=== PATIENT | male | born 1955 | race Caucasian/White ===

== ENCOUNTER 2018-02-07 23:25 | Inpatient (IN) | payer BC ==
[2018-02-07] MEDS ORDERED: methylPREDNISolone SOD SUCCI 125 MG/2 ML VIAL IV STA (23:27)
[2018-02-07] MEDS ORDERED: IPRATROPIUM-ALBUTEROL 3 ML NEB INHALATION STA (23:27)
[2018-02-07] MEDS ORDERED: SODIUM CHLORIDE 0.9% 1,000 ML IV STA ×2 (23:27)
--- NOTE | 2018-02-07 23:29 | ED ---
Asthma HPI - General Stated Complaint: MARIE - History of Present Illness Initial Comments: Anderson is a 62-year-old male who presents to the ED via EMS for evaluation of shortness of breath. Upon initial evaluation the patient is in acute respiratory distress, 2 word dyspnea, on CPAP from EMS. Patient is able to answer yes no questions. Patient reports he's had progressively worsening shortness of breath and wheezing for approximately 2 weeks. It worsened today which prompted his to call 911. Patient denies chest pain, palpitations or exertional symptoms. He reports initially his symptoms would improve with using his rescue inhaler but today they did not. He denies any fever or productive cough. - Related Data Home Medications Medication Instructions Recorded Confirmed Albuterol Sulfate [Proair Hfa] 1 - 2 puff INHALATION Q6HR PRN 02/07/18 02/07/18 Beclomethasone Dipropionate [Qvar 1 puff INHALATION RT-BID 02/07/18 02/07/18 80 mcg] Fluticasone Propionate [Flovent 1 puff INHALATION RT-DAILY PRN 02/07/18 02/07/18 Diskus] Lisinopril-Hctz 20-12.5 mg 1 tab PO DAILY 02/07/18 02/07/18 [Zestoretic 20-12.5] Pantoprazole [Protonix] 40 mg PO DAILY 02/07/18 02/07/18 Allergies Allergy/AdvReac Type Severity Reaction Status Date / Time No Known Allergies Allergy Verified 02/07/18 23:39 Review of Systems ROS Statement: Those systems with pertinent positive or pertinent negative responses have been documented in the HPI. ROS Other: All systems not noted in ROS Statement are negative. Past Medical History Past Medical History: Asthma, GERD/Reflux, Hypertension Additional Past Medical History / Comment(s): receives alg injections for seasonal,dust,mold,animal dander,trees every 2 weeks. History of Any Multi-Drug Resistant Organisms: None Reported Past Surgical History: Hernia Repair Past Anesthesia/Blood Transfusion Reactions: No Reported Reaction Smoking Status: Never smoker - Past Family History Mother Family Medical History: Cancer Additional Family Medical History / Comment(s): lung mets to brain Father Family Medical History: Hypertension Additional Family Medical History / Comment(s): caden General Exam - General Exam Comments Initial Comments: Physical Exam GENERAL: Patient is in moderate respiratory distress HENT: Normocephalic, Atraumatic. EYES: PERRL, EOMI PULMONARY: Tachypneic, labored respirations, expiratory and expiratory wheezing, retractions CARDIOVASCULAR: Tachycardic, regular Warm and well-perfused extremities ABDOMEN: Soft and nontender with normal bowel sounds. SKIN: Skin is clear with no lesions or rashes and otherwise unremarkable. There is skin tenting and the patient appears dehydrated : Deferred NEUROLOGIC: Patient is alert and oriented x3. Moving all extremities spontaneously MUSCULOSKELETAL: Normal extremities with adequate strength and full range of motion. No lower extremity swelling or edema. No calf tenderness. PSYCHIATRIC: Normal psychiatric evaluation. Limitations: no limitations Course Vital Signs 02/07/18 02/07/18 02/07/18 23:26 23:37 23:46 Temperature 97.6 F Pulse Rate 131 H 122 H Pulse Rate [ Electronics Hardware Design Engineer ] Respiratory 24 22 20 Rate Blood Pressure 178/126 Blood Pressure [Left Arm] O2 Sat by Pulse 100 Oximetry 02/07/18 02/08/18 02/08/18 23:51 00:06 00:54 Temperature Pulse Rate 120 H 116 H 101 H Pulse Rate [ Electronics Hardware Design Engineer ] Respiratory 18 14 13 Rate Blood Pressure 138/96 117/88 Blood Pressure [Left Arm] O2 Sat by Pulse 99 100 Oximetry 02/08/18 02/08/18 01:43 01:45 Temperature 97.8 F Pulse Rate 90 Pulse Rate [ 116 H Electronics Hardware Design Engineer ] Respiratory 26 H 14 Rate Blood Pressure 122/78 Blood Pressure 142/70 [Left Arm] O2 Sat by Pulse 98 99 Oximetry Medical Decision Making - Medical Decision Making Patient was seen and evaluated immediately upon arrival in the emergency department. Patient was noted to be in moderate respiratory distress. Patient was on CPAP with oxygen saturations in the 100s. BiPAP was immediately placed. Patient and received a single DuoNeb treatment in route to the hospital - double DuoNeb therapy and steroids were ordered Labs and imaging were ordered EKG with sinus tachycardia Labs with elevated globin which is likely hemoconcentration secondary to dehydration, troponin and d-dimer negative Patient improving after double DuoNeb and steroids and oxygen saturation remains 100% on BiPAP Patient reports improvement, but has persistent wheezing, IV magnesium was ordered At this time I do feel the patient warrants admission to the hospital. His oxygenation is improving his work of breathing is improving, his tachypnea and is improving as well as his tachycardia. I suspect the patient will require [id number] duo nebs and steroids. Patient is agreeable to plan for admission. Patient is currently on BiPAP I will plan to admit to the stepdown unit. - Lab Data Result diagrams: 02/07/18 23:37 02/07/18 23:37 Lab Results 02/07/18 02/07/18 02/07/18 Range/Units 23:37 23:37 23:37 WBC 9.8 (3.8-10.6) k/uL RBC 5.07 (4.30-5.90) m/uL Hgb 18.0 H (13.0-17.5) gm/dL Hct 52.5 (39.0-53.0) % MCV 103.6 H (80.0-100.0) fL MCH 35.5 H (25.0-35.0) pg MCHC 34.3 (31.0-37.0) g/dL RDW 12.7 (11.5-15.5) % Plt Count 275 (150-450) k/uL Neutrophils % 68 % Lymphocytes % 11 % Monocytes % 5 % Eosinophils % 13 % Basophils % 1 % Neutrophils # 6.7 (1.3-7.7) k/uL Lymphocytes # 1.1 (1.0-4.8) k/uL Monocytes # 0.5 (0-1.0) k/uL Eosinophils # 1.3 H (0-0.7) k/uL Basophils # 0.1 (0-0.2) k/uL Macrocytosis Slight PT (9.0-12.0) sec INR (<1.2) APTT (22.0-30.0) sec D-Dimer (<0.60) mg/L FEU Sodium 141 (137-145) mmol/L Potassium 3.9 (3.5-5.1) mmol/L Chloride 101 (98-107) mmol/L Carbon Dioxide 28 (22-30) mmol/L Anion Gap 12 mmol/L BUN 17 (9-20) mg/dL Creatinine 0.98 (0.66-1.25) mg/dL Est GFR (CKD-EPI)AfAm >90 (>60 ml/min/1.73 sqM) Est GFR (CKD-EPI)NonAf 84 (>60 ml/min/1.73 sqM) Glucose 133 H (74-99) mg/dL Calcium 9.7 (8.4-10.2) mg/dL Magnesium 2.2 (1.6-2.3) mg/dL Total Bilirubin 1.1 (0.2-1.3) mg/dL AST 43 (17-59) U/L ALT 42 (21-72) U/L Alkaline Phosphatase 99 (38-126) U/L Total Creatine Kinase 78 (55-170) U/L CK-MB (CK-2) 1.7 (0.0-2.4) ng/mL CK-MB (CK-2) Rel Index 2.2 Troponin I <0.012 (0.000-0.034) ng/mL NT-Pro-B Natriuret Pep pg/mL Total Protein 8.4 H (6.3-8.2) g/dL Albumin 4.6 (3.5-5.0) g/dL 02/07/18 02/07/18 Range/Units 23:37 23:37 WBC (3.8-10.6) k/uL RBC (4.30-5.90) m/uL Hgb (13.0-17.5) gm/dL Hct (39.0-53.0) % MCV (80.0-100.0) fL MCH (25.0-35.0) pg MCHC (31.0-37.0) g/dL RDW (11.5-15.5) % Plt Count (150-450) k/uL Neutrophils % % Lymphocytes % % Monocytes % % Eosinophils % % Basophils % % Neutrophils # (1.3-7.7) k/uL Lymphocytes # (1.0-4.8) k/uL Monocytes # (0-1.0) k/uL Eosinophils # (0-0.7) k/uL Basophils # (0-0.2) k/uL Macrocytosis PT 10.4 (9.0-12.0) sec INR 1.1 (<1.2) APTT 24.5 (22.0-30.0) sec D-Dimer 0.35 (<0.60) mg/L FEU Sodium (137-145) mmol/L Potassium (3.5-5.1) mmol/L Chloride (98-107) mmol/L Carbon Dioxide (22-30) mmol/L Anion Gap mmol/L BUN (9-20) mg/dL Creatinine (0.66-1.25) mg/dL Est GFR (CKD-EPI)AfAm (>60 ml/min/1.73 sqM) Est GFR (CKD-EPI)NonAf (>60 ml/min/1.73 sqM) Glucose (74-99) mg/dL Calcium (8.4-10.2) mg/dL Magnesium (1.6-2.3) mg/dL Total Bilirubin (0.2-1.3) mg/dL AST (17-59) U/L ALT (21-72) U/L Alkaline Phosphatase (38-126) U/L Total Creatine Kinase (55-170) U/L CK-MB (CK-2) (0.0-2.4) ng/mL CK-MB (CK-2) Rel Index Troponin I (0.000-0.034) ng/mL NT-Pro-B Natriuret Pep 160 pg/mL Total Protein (6.3-8.2) g/dL Albumin (3.5-5.0) g/dL - EKG Data EKG Comments: EKG obtained at 11:29 PM, rate is 131, rhythm is sinus, there is a normal axis, normal intervals, AR 152, QRS 76, QTC is 431. There is some hyperacute T waves in V2 through V4, no specific ST elevations or depressions. No evidence of acute ischemia or infarction. We will repeat EKG. Critical Care Time Critical Care Time: Yes Total Critical Care Time: 30 Disposition Clinical Impression: Asthma with exacerbation Disposition: ADMITTED IP TO THIS HOSP Condition: Serious Is patient prescribed a controlled substance at d/c from ED?: No
--- NOTE | 2018-02-08 00:03 | XR ---
EXAMINATION TYPE: XR chest 1V portable DATE OF EXAM: 02/07/2018 COMPARISON: 02/14/2013 HISTORY: Difficulty breathing TECHNIQUE: Single frontal view of the chest is obtained. FINDINGS: Heart and mediastinum are normal. Lungs are clear. Diaphragm is normal. There are chest le ads. Bony thorax is intact. IMPRESSION: Normal chest. No change.
[2018-02-08 00:07] LABS: Basophils # (A) 0.1 k/uL (0-0.2); Basophils % (A) 1 %; Eosinophils # (A) 1.3 k/uL (0-0.7); Eosinophils % (A) 13 %; HCT 52.5 % (39.0-53.0); Lymphocytes # (A) 1.1 k/uL (1.0-4.8); Lymphocytes % (A) 11 %; MCH 35.5 pg (25.0-35.0); MCHC 34.3 g/dL (31.0-37.0); MCV 103.6 fL (80.0-100.0); Macrocytosis Slight; Mean Platelet Volume 7.2; Monocytes # (A) 0.5 k/uL (0-1.0); Monocytes % (A) 5 %; Neutrophils # (A) 6.7 k/uL (1.3-7.7); Neutrophils % (A) 68 %; Platelet Count 275 k/uL (150-450); RBC 5.07 m/uL (4.30-5.90); RDW 12.7 % (11.5-15.5); WBC 9.8 k/uL (3.8-10.6)
[2018-02-08 00:18] LABS: ALT 42 U/L (21-72); AST 43 U/L (17-59); Albumin 4.6 g/dL (3.5-5.0); Alkaline Phosphatase 99 U/L (38-126); Anion Gap 12 mmol/L; Blood Urea Nitrogen 17 mg/dL (9-20); Calcium 9.7 mg/dL (8.4-10.2); Carbon Dioxide 28 mmol/L (22-30); Chloride 101 mmol/L (98-107); Glucose 133 mg/dL (74-99); Magnesium 2.2 mg/dL (1.6-2.3); Potassium 3.9 mmol/L (3.5-5.1); Sodium 141 mmol/L (137-145); Total Bilirubin 1.1 mg/dL (0.2-1.3); Total Protein 8.4 g/dL (6.3-8.2)
[2018-02-08 00:20] LABS: D-Dimer 0.35 mg/L FEU (<0.60); INR 1.1 (<1.2); Partial Thromboplastin Time 24.5 sec (22.0-30.0); Prothrombin Time 10.4 sec (9.0-12.0)
[2018-02-08 00:33] LABS: Creatine Kinase 78 U/L (55-170)
[2018-02-08 00:45] LABS: Creatine Kinase MB 1.7 ng/mL (0.0-2.4); Troponin I <0.012 ng/mL (0.000-0.034)
[2018-02-08] MEDS ORDERED: MAGNESIUM SULFATE-D5W PMX 1 GM in DEXTROSE/WATER 1 100ML.BAG IVPB ONE (00:59)
[2018-02-08] MEDS ORDERED: IPRATROPIUM-ALBUTEROL 3 ML NEB INHALATION PRN ×2 (01:01→10:49)
[2018-02-08 02:09] VITALS: BMI 25.0
[2018-02-08] MEDS: HEPARIN SODIUM,PORCINE 5,000 UNIT/ML 1 ML VIAL SQ SCH ×2 (08:46→16:39)
[2018-02-08] MEDS ORDERED: predniSONE 20 MG TAB PO SCH (09:00)
--- NOTE | 2018-02-08 11:35 | P.CNPUL ---
History of Present Illness Consult date: 02/08/18 Reason for consult: dyspnea, cough, asthma, hypoxemia, abnormal CXR/CT Chief complaint: Shortness of breath and asthma exacerbation History of present illness: Pulmonary consult dated 02/08/2018 62-year-old male with a history of gastroesophageal reflux disease, hypertension , and chronic bronchial asthma. The patient sees a physician out in [place] for his medical issues. Over the last number of days, the patient states his asthma is acting up. 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 He states he has profound shortness of breath chest tightness wheezing and cough. Coughing up some phlegm which is yellow-green in color. The patient denies any fever or chills. He apparently has been using his rescue inhaler many many times and he actually estimates that he is use his rescue inhaler 42 times. The patient is typically on protonic's lisinopril/ HCTZ Qvar albuterol updrafts and albuterol inhaler for his medical issues. The patient states that the short acting beta agonist really did not help. For that reason, he came into the emergency room to be evaluated. He is feeling a bit better today but certainly has a long way to go yet. Again the patient has never seen a supervisor putty and caluking in the past. This probably useful if he does. He has NO KNOWN DRUG ALLERGIES. He apparently receives ALLERGY injections for seasonal allergens dust mold and animal dander trees, etc., every 2 weeks. Surgically, he has a history of hernia repair. He is a lifelong nonsmoker. Review of Systems A 14 point review of system is positive for shortness of breath chest tightness wheezing cough and yellow brown phlegm production. No fever or chills. Past Medical History Past Medical History: Asthma, GERD/Reflux, Hypertension Additional Past Medical History / Comment(s): receives alg injections for seasonal,dust,mold,animal dander,trees every 2 weeks. History of Any Multi-Drug Resistant Organisms: None Reported Past Surgical History: Hernia Repair Past Anesthesia/Blood Transfusion Reactions: No Reported Reaction Smoking Status: Never smoker - Past Family History Mother Family Medical History: Cancer Additional Family Medical History / Comment(s): lung mets to brain Father Family Medical History: Hypertension Additional Family Medical History / Comment(s): pacermaker Medications and Allergies Home Medications Medication Instructions Recorded Confirmed Type Albuterol Sulfate [Proair Hfa] 1 - 2 puff INHALATION Q6HR PRN 02/07/18 02/07/18 History Beclomethasone Dipropionate [Qvar 1 puff INHALATION RT-BID 02/07/18 02/07/18 History 80 mcg] Fluticasone Propionate [Flovent 1 puff INHALATION RT-DAILY PRN 02/07/18 History Diskus] Lisinopril-Hctz 20-12.5 mg 1 tab PO DAILY 02/07/18 02/07/18 History [Zestoretic 20-12.5] Pantoprazole [Protonix] 40 mg PO DAILY 02/07/18 02/07/18 History Allergies Allergy/AdvReac Type Severity Reaction Status Date / Time No Known Allergies Allergy Verified 02/07/18 23:39 Physical Exam Osteopathic Statement: *. No significant issues noted on an osteopathic structural exam other than those noted in the History and Physical/Consult. Vitals: Vital Signs Temp Pulse Pulse Resp BP BP Pulse Ox 02/08/18 11:16 104 H 02/08/18 11:06 100 02/08/18 08:00 97.2 F L 103 H 16 122/70 97 02/08/18 07:34 110 H 02/08/18 07:24 108 H 02/08/18 04:00 98 F 96 24 97 02/08/18 01:45 97.8 F 90 14 122/78 99 02/08/18 01:43 116 H 26 H 142/70 98 02/08/18 00:54 101 H 13 117/88 100 02/08/18 00:06 116 H 14 138/96 99 02/07/18 23:51 120 H 18 02/07/18 23:46 20 02/07/18 23:37 122 H 22 02/07/18 23:26 97.6 F 131 H 24 178/126 100 Intake and Output 02/07/18 02/08/18 02/08/18 22:59 06:59 14:59 Intake Total 480 118 Balance 480 118 Intake: Oral 480 118 Other: Voiding Method Urinal # Voids 1 Weight 75.5 kg No acute distress, oriented 3. Mildly tachypnea and dyspneic. Some mild audible wheezing noted. HEENT examination is grossly unremarkable. Mucous membranes are moist. No oral lesions. Neck supple. Full range of motion. No adenopathy thyromegaly or neck vein distention. Cardiovascular examination reveals regular rhythm rate. S1-S2 normal. No S3 or S4. No discernible murmur noted. Heart rate is 100. Lungs reveal diminished breath sounds throughout. There is prolongation on forced maneuver. Patient coughs and wheezes on forced maneuver. Breath sounds are equal bilaterally. Adventitious lung sounds are more prominent on forced maneuver.. Abdomen soft bowel sounds are heard. No masses or tenderness. Extremities are intact. No cyanosis clubbing or edema. Skin is without rash or lesion. Neurologic examination is brief but nonfocal. Results - Laboratory Findings CBC and BMP: 02/07/18 23:37 02/07/18 23:37 PT/INR, D-dimer PT 10.4 sec (9.0-12.0) 02/07/18 23:37 INR 1.1 (<1.2) 02/07/18 23:37 D-Dimer 0.35 mg/L FEU (<0.60) 02/07/18 23:37 Abnormal lab findings: Abnormal Labs 02/07/18 02/07/18 23:37 23:37 Hgb 18.0 H MCV 103.6 H MCH 35.5 H Eosinophils # 1.3 H Glucose 133 H Total Protein 8.4 H - Diagnostic Findings Chest x-ray: report reviewed, image reviewed (Chest x-ray, labs and medications are reviewed extensively.) Assessment and Plan Assessment: Assessment Asthma exacerbation likely complicated by purulent tracheobronchitis Lifelong nonsmoker. History of hypertension History of gastroesophageal reflux disease Plan: Plan dated 02/08/2018 The patient's medications are reviewed. He'll need a short acting beta agonist , I short acting muscarinic antagonist, a long-acting beta agonist and inhaled corticosteroid. In addition, the patient will need systemic corticosteroids and oral antibiotics. He probably will need another day or 2 in the hospital. He apparently was on Singulair in the past but stopped it because it caused abdominal pains. He stopped and then resumed it after 2 weeks and it again caused abdominal pains and he has never gone back on it. 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 He get shots every 2 weeks. The patient will need follow-up in our office post discharge. No additional recommendations are made. Prognosis is guarded. Time with Patient: Greater than 30
[2018-02-08 12:04] LABS: Glucose,Whole Blood 168 mg/dL (75-99)
[2018-02-08] MEDS ORDERED: ACETAMINOPHEN TAB 325 MG TAB PO PRN (13:01)
[2018-02-08] MEDS: LEVOFLOXACIN 500 MG TAB PO SCH (13:07)
[2018-02-08] MEDS: methylPREDNISolone SOD SUCCI 125 MG/2 ML VIAL IV SCH ×2 (13:11→16:40)
[2018-02-08] MEDS: IPRATROPIUM-ALBUTEROL 3 ML NEB INHALATION SCH ×4 (15:40→23:33)
[2018-02-08] MEDS: INSULIN ASPART 100 UNIT/ML 1 ML 10 ML VIAL SQ SCH ×2 (16:39→20:23)
[2018-02-08 16:45] LABS: Glucose,Whole Blood 166 mg/dL (75-99)
[2018-02-08] MEDS ORDERED: FLUTICASONE 44 MCG INHALER INHALATION PRN (17:57)
--- NOTE | 2018-02-08 18:53 | P.HPIM ---
History of Present Illness This is a pleasant 62 years old female with past medical history of asthma, GERD , hypertension. Who presents because of acute dyspnea. Typical asthma attack. Patient states he has history of asthma since age 7. And over the last 2 weeks he was getting progressively short of breath despite the was asking him to come to the hospital or see his doctor. Yesterday he got severely short of breath after he came from marked fecal debris. I decided to come to the hospital. His dyspnea is associated with a dry cough. No phlegm. No chest pain. No change in urine or bowel habits. No upper respiratory tract symptoms. no Fever. No sick contacts. Patient states he has 2 ducts for 5 years which he counseled to keep away from contributed to his asthma attack. Patient was started on steroids and breathing treatment and oxygen and antibiotic. And he starts feeling better Review of Systems CONSTITUTIONAL: No fever, no malaise, no fatigue. HEENT: No recent visual problems or hearing problems. Denied any sore throat. CARDIOVASCULAR: No orthopnea, PND, no palpitations, no syncope. PULMONARY: No shortness of breath, no cough, no hemoptysis. GASTROINTESTINAL: No diarrhea, no nausea, no vomiting, no abdominal pain. Normoactive bowel sounds. NEUROLOGICAL: No headaches, no weakness, no numbness. HEMATOLOGICAL: Denies any bleeding or petechiae. GENITOURINARY: Denies any burning micturition, frequency, or urgency. MUSCULOSKELETAL/RHEUMATOLOGICAL: Denies any joint pain, swelling, or any muscle pain. ENDOCRINE: Denies any polyuria or polydipsia. Past Medical History Past Medical History: Asthma, GERD/Reflux, Hypertension Additional Past Medical History / Comment(s): receives alg injections for seasonal,dust,mold,animal dander,trees every 2 weeks. History of Any Multi-Drug Resistant Organisms: None Reported Past Surgical History: Hernia Repair Past Anesthesia/Blood Transfusion Reactions: No Reported Reaction Smoking Status: Never smoker - Past Family History Mother Family Medical History: Cancer Additional Family Medical History / Comment(s): lung mets to brain Father Family Medical History: Hypertension Additional Family Medical History / Comment(s): MerchMermaker Medications and Allergies Home Medications Medication Instructions Recorded Confirmed Type Albuterol Sulfate [Proair Hfa] 1 - 2 puff INHALATION Q6HR PRN 02/07/18 02/07/18 History Beclomethasone Dipropionate [Qvar 1 puff INHALATION RT-BID 02/07/18 02/07/18 History 80 mcg] Fluticasone Propionate [Flovent 1 puff INHALATION RT-DAILY PRN 02/07/18 History Diskus] Lisinopril-Hctz 20-12.5 mg 1 tab PO DAILY 02/07/18 02/07/18 History [Zestoretic 20-12.5] Pantoprazole [Protonix] 40 mg PO DAILY 02/07/18 02/07/18 History Allergies Allergy/AdvReac Type Severity Reaction Status Date / Time No Known Allergies Allergy Verified 02/07/18 23:39 Physical Exam Vitals: Vital Signs Temp Pulse Pulse Resp BP BP Pulse Ox 02/08/18 16:00 99 16 124/67 99 02/08/18 15:56 104 H 20 02/08/18 15:41 104 H 20 02/08/18 12:00 85 16 114/63 02/08/18 11:57 16 02/08/18 11:16 104 H 02/08/18 11:06 100 02/08/18 08:00 97.2 F L 103 H 16 122/70 97 02/08/18 07:34 110 H 02/08/18 07:24 108 H 02/08/18 04:00 98 F 96 24 97 02/08/18 01:45 97.8 F 90 14 122/78 99 02/08/18 01:43 116 H 26 H 142/70 98 02/08/18 00:54 101 H 13 117/88 100 02/08/18 00:06 116 H 14 138/96 99 02/07/18 23:51 120 H 18 02/07/18 23:46 20 02/07/18 23:37 122 H 22 02/07/18 23:26 97.6 F 131 H 24 178/126 100 Intake and Output 02/08/18 02/08/18 02/08/18 06:59 14:59 22:59 Intake Total 480 918 Balance 480 918 Intake: Intake, IV Titration 600 Amount Sodium Chloride 0.9% 1, 600 000 ml @ 75 mls/hr IV . [id number] STA Rx#:[id number] Oral 480 318 Other: Voiding Method Urinal Urinal # Voids 1 Weight 75.5 kg GENERAL: The patient is alert and oriented x3, not in any acute distress. Well developed, well nourished. HEENT: Pupils are round and equally reacting to light. EOMI. No scleral icterus. No conjunctival pallor. Normocephalic, atraumatic. No pharyngeal erythema. No thyromegaly. CARDIOVASCULAR: S1 and S2 present. No murmurs, rubs, or gallops. PULMONARY: Chest is clear to auscultation, no wheezing or crackles. ABDOMEN: Soft, nontender, nondistended, normoactive bowel sounds. No palpable organomegaly. MUSCULOSKELETAL: No joint swelling or deformity. EXTREMITIES: No cyanosis, clubbing, or pedal edema. NEUROLOGICAL: Gross neurological examination did not reveal any focal deficits. SKIN: No rashes. Results CBC & Chem 7: 02/07/18 23:37 02/07/18 23:37 Labs: Abnormal Lab Results - Last 24 Hours (Table) 02/07/18 02/07/18 02/08/18 Range/Units 23:37 23:37 11:53 Hgb 18.0 H (13.0-17.5) gm/dL MCV 103.6 H (80.0-100.0) fL MCH 35.5 H (25.0-35.0) pg Eosinophils # 1.3 H (0-0.7) k/uL Glucose 133 H (74-99) mg/dL POC Glucose (mg/dL) 168 H (75-99) mg/dL Total Protein 8.4 H (6.3-8.2) g/dL 02/08/18 Range/Units 16:35 Hgb (13.0-17.5) gm/dL MCV (80.0-100.0) fL MCH (25.0-35.0) pg Eosinophils # (0-0.7) k/uL Glucose (74-99) mg/dL POC Glucose (mg/dL) 166 H (75-99) mg/dL Total Protein (6.3-8.2) g/dL Thrombosis Risk Factor Assmnt - Choose All That Apply Each Risk Factor Represents 2 Points: Age 61-74 years Thrombosis Risk Factor Assessment Total Risk Factor Score: 2 Thrombosis Risk Factor Assessment Level: Low Risk Assessment and Plan Assessment: Acute asthma attack Possible acute tracheobronchitis Essential hypertension GERD Plan: This is a pleasant 62 years old female who presents because of acute asthma exacerbation. Continue with steroids, oxygen, breathing treatment and antibiotic. Continue same treatment. Continue symptomatic treatment. Resume home medication. Monitor lytes and vitals. Pulmonary consult is appreciated. GI and DVT prophylaxis. Further recommendation the clinical course of the patient DVT prophylaxis:Subcutaneous heparin GI prophylaxis:Pepcid PT/OT: Pending Prognosis is guarded
[2018-02-08] MEDS: FORMOTEROL FUMARATE 20 MCG/2 ML NEBU INHALATION SCH (19:37)
[2018-02-08] MEDS: BUDESONIDE 1 MG/2 ML NEBU INHALATION SCH (19:37)
[2018-02-08] MEDS ORDERED: LISINOPRIL 20 MG TAB PO SCH (20:00)
[2018-02-08] MEDS ORDERED: FLUTICASONE 110 MCG INHALER INHALATION SCH (20:00)
[2018-02-08] MEDS: FAMOTIDINE 20 MG/2 ML VIAL IV SCH (20:36)
[2018-02-09] MEDS: HEPARIN SODIUM,PORCINE 5,000 UNIT/ML 1 ML VIAL SQ SCH ×3 (00:32→17:25)
[2018-02-09] MEDS: methylPREDNISolone SOD SUCCI 125 MG/2 ML VIAL IV SCH ×4 (00:32→17:25)
[2018-02-09] MEDS: IPRATROPIUM-ALBUTEROL 3 ML NEB INHALATION SCH ×6 (03:15→23:18)
[2018-02-09 05:53] LABS: Glucose,Whole Blood 135 mg/dL (75-99)
[2018-02-09] MEDS: INSULIN ASPART 100 UNIT/ML 1 ML 10 ML VIAL SQ SCH ×4 (06:20→21:43)
[2018-02-09] MEDS: PANTOPRAZOLE 40 MG TABLET PO SCH (06:22)
[2018-02-09] MEDS: BUDESONIDE 1 MG/2 ML NEBU INHALATION SCH ×2 (07:16→19:29)
[2018-02-09] MEDS: FORMOTEROL FUMARATE 20 MCG/2 ML NEBU INHALATION SCH ×2 (07:16→19:29)
[2018-02-09 09:23] LABS: Basophils % (A) 0 %; Eosinophils # (A) 0.1 k/uL (0-0.7); Eosinophils % (A) 1 %; HCT 46.6 % (39.0-53.0); HGB 15.3 gm/dL (13.0-17.5); Lymphocytes # (A) 0.4 k/uL (1.0-4.8); Lymphocytes % (A) 3 %; MCH 35.1 pg (25.0-35.0); MCHC 32.9 g/dL (31.0-37.0); MCV 106.6 fL (80.0-100.0); Macrocytosis Moderate; Mean Platelet Volume 7.3; Monocytes # (A) 0.3 k/uL (0-1.0); Monocytes % (A) 2 %; Neutrophils # (A) 11.5 k/uL (1.3-7.7); Neutrophils % (A) 93 %; Platelet Count 253 k/uL (150-450); RBC 4.37 m/uL (4.30-5.90); RDW 12.7 % (11.5-15.5); WBC 12.3 k/uL (3.8-10.6)
[2018-02-09 09:26] LABS: Anion Gap 9 mmol/L; Blood Urea Nitrogen 15 mg/dL (9-20); Calcium 9.3 mg/dL (8.4-10.2); Carbon Dioxide 27 mmol/L (22-30); Chloride 106 mmol/L (98-107); Glucose 189 mg/dL (74-99); Potassium 4.3 mmol/L (3.5-5.1); Sodium 142 mmol/L (137-145)
[2018-02-09] MEDS: LISINOPRIL-HCTZ 20-12.5 MG 1 EACH TAB PO SCH (10:07)
[2018-02-09] MEDS: FAMOTIDINE 20 MG/2 ML VIAL IV SCH ×2 (10:07→21:43)
[2018-02-09] MEDS: LEVOFLOXACIN 500 MG TAB PO SCH (12:01)
[2018-02-09 12:02] LABS: Glucose,Whole Blood 134 mg/dL (75-99)
--- NOTE | 2018-02-09 12:41 | P.PN ---
Subjective Progress Note Date: 02/09/18 Principal diagnosis: Acute exacerbation of chronic bronchial asthma Pulmonary consult dated 02/08/2018 62-year-old male with a history of gastroesophageal reflux disease, hypertension , and chronic bronchial asthma. The patient sees a physician out in [place] for his medical issues. Over the last number of days, the patient states his asthma is acting up. 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 He states he has profound shortness of breath chest tightness wheezing and cough. Coughing up some phlegm which is yellow-green in color. The patient denies any fever or chills. He apparently has been using his rescue inhaler many many times and he actually estimates that he is use his rescue inhaler 42 times. The patient is typically on protonic's lisinopril/ HCTZ Qvar albuterol updrafts and albuterol inhaler for his medical issues. The patient states that the short acting beta agonist really did not help. For that reason, he came into the emergency room to be evaluated. He is feeling a bit better today but certainly has a long way to go yet. Again the patient has never seen a clicker operator in the past. This probably useful if he does. He has NO KNOWN DRUG ALLERGIES. He apparently receives ALLERGY injections for seasonal allergens dust mold and animal dander trees, etc., every 2 weeks. Surgically, he has a history of hernia repair. He is a lifelong nonsmoker. Progress note dated 02/09/2018 Patient is seen again today in follow-up in the intensive care unit. Awake and alert in no acute distress. He's been up ambulating in the room without acute distress. He is much improved today as compared to yesterday but still not quite back to his baseline. Still somewhat bronchospastic and wheezy. He is maintaining O2 saturations in the 90s on 2 L/m per nasal cannula. He's been afebrile. Hemodynamically stable. White count 12.3. Hemoglobin 15.3. Creatinine 0.81. He is continued on DuoNeb inhalations, Pulmicort and Perforomist inhalations, IV Solu-Medrol, Levaquin. Objective - Vital Signs Vital signs: Vital Signs Temp 97.8 F 02/09/18 11:46 Pulse 92 02/09/18 11:46 Resp 20 02/09/18 11:46 BP 146/81 02/09/18 11:46 Pulse Ox 94 L 02/09/18 11:46 Intake & Output 02/08/18 02/09/18 02/09/18 18:59 06:59 18:59 Intake Total 1218 530 Balance 1218 530 Weight 75.5 kg Intake: Intake, IV Titration 600 Amount Sodium Chloride 0.9% 1, 600 000 ml @ 75 mls/hr IV . [id number] STA Rx#:[id number] Oral 618 530 Other: Voiding Method Urinal Urinal # Voids 2 - Exam GENERAL EXAM: Alert, active, comfortable in no apparent distress. HEAD: Normocephalic. EYES: Normal reaction of pupils, equal size. NOSE: Clear with pink turbinates. THROAT: No erythema or exudates. NECK: No masses, no JVD. CHEST: No chest wall deformity. LUNGS: Equal air entry with bilateral end expiratory wheeze. Diminished. CVS: S1 and S2 normal with no audible murmur, regular rhythm. ABDOMEN: No hepatosplenomegaly, normal bowel sounds, no guarding or rigidity. SPINE: No scoliosis or deformity SKIN: No rashes CENTRAL NERVOUS SYSTEM: No focal deficits, tone is normal in all 4 extremities. EXTREMITIES: There is no peripheral edema. No clubbing, no cyanosis. Peripheral pulses are intact. - Labs CBC & Chem 7: 02/09/18 08:50 02/09/18 08:50 Labs: Abnormal Lab Results - Last 24 Hours (Table) 02/08/18 02/09/18 02/09/18 Range/Units 16:35 05:52 08:50 WBC 12.3 H (3.8-10.6) k/uL MCV 106.6 H (80.0-100.0) fL MCH 35.1 H (25.0-35.0) pg Neutrophils # 11.5 H (1.3-7.7) k/uL Lymphocytes # 0.4 L (1.0-4.8) k/uL Glucose (74-99) mg/dL POC Glucose (mg/dL) 166 H 135 H (75-99) mg/dL 02/09/18 02/09/18 Range/Units 08:50 12:00 WBC (3.8-10.6) k/uL MCV (80.0-100.0) fL MCH (25.0-35.0) pg Neutrophils # (1.3-7.7) k/uL Lymphocytes # (1.0-4.8) k/uL Glucose 189 H (74-99) mg/dL POC Glucose (mg/dL) 134 H (75-99) mg/dL Assessment and Plan Assessment: Assessment Asthma exacerbation likely complicated by purulent tracheobronchitis Lifelong nonsmoker. History of hypertension History of gastroesophageal reflux disease Plan: The patient was seen and evaluated by Dr. Wilkerson. He is improved today as compared to yesterday. Still not quite back to his baseline. We'll continue with his current medications. We'll increase his activity as tolerated. We'll continue to follow. I, the cosigning physician, performed a history & physical examination of the patient. Lungs sounds with bilateral end expiratory wheeze. Maintaining good O2 saturations in the 90s on 2 L/m per nasal cannula. I discussed the assessment and plan of care with my nurse practitioner, Kendra Sanchez. I attest to the above note as dictated by her.
[2018-02-09 16:24] LABS: Glucose,Whole Blood 164 mg/dL (75-99)
--- NOTE | 2018-02-09 18:03 | P.PN ---
Subjective This is a pleasant 62 years old female with past medical history of asthma, GERD , hypertension. Who presents because of acute dyspnea. Typical asthma attack. Patient states he has history of asthma since age 7. And over the last 2 weeks he was getting progressively short of breath despite the was asking him to come to the hospital or see his doctor. Yesterday he got severely short of breath after he came from marked fecal debris. I decided to come to the hospital. His dyspnea is associated with a dry cough. No phlegm. No chest pain. No change in urine or bowel habits. No upper respiratory tract symptoms. no Fever. No sick contacts. Patient states he has 2 ducts for 5 years which he counseled to keep away from contributed to his asthma attack. Patient was started on steroids and breathing treatment and oxygen and antibiotic. And he starts feeling better 02/09/2018 Patient feels a little bit better today and actually he can talk much easier. Also he is able to make phlegm and expectorate the stump from his chest which make him more relieved. 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 WBC is 12.3 K. He is saturating 93-94% on 2 L nasal cannula Objective - Vital Signs Vital signs: Vital Signs Temp 98.4 F 02/09/18 16:00 Pulse 97 02/09/18 16:00 Resp 18 02/09/18 16:00 BP 131/81 02/09/18 16:00 Pulse Ox 93 L 02/09/18 16:00 Intake & Output 02/08/18 02/09/18 02/09/18 18:59 06:59 18:59 Intake Total 1218 530 Balance 1218 530 Weight 75.5 kg Intake: Intake, IV Titration 600 Amount Sodium Chloride 0.9% 1, 600 000 ml @ 75 mls/hr IV . [id number] STA Rx#:[id number] Oral 618 530 Other: Voiding Method Urinal Urinal # Voids 2 1 - Exam GENERAL: The patient is alert and oriented x3, not in any acute distress. Well developed, well nourished. HEENT: Pupils are round and equally reacting to light. EOMI. No scleral icterus. No conjunctival pallor. Normocephalic, atraumatic. No pharyngeal erythema. No thyromegaly. CARDIOVASCULAR: S1 and S2 present. No murmurs, rubs, or gallops. PULMONARY: Chest is clear to auscultation, no wheezing or crackles. ABDOMEN: Soft, nontender, nondistended, normoactive bowel sounds. No palpable organomegaly. MUSCULOSKELETAL: No joint swelling or deformity. EXTREMITIES: No cyanosis, clubbing, or pedal edema. NEUROLOGICAL: Gross neurological examination did not reveal any focal deficits. SKIN: No rashes. - Labs CBC & Chem 7: 02/09/18 08:50 02/09/18 08:50 Labs: Abnormal Lab Results - Last 24 Hours (Table) 02/09/18 02/09/18 02/09/18 Range/Units 05:52 08:50 08:50 WBC 12.3 H (3.8-10.6) k/uL MCV 106.6 H (80.0-100.0) fL MCH 35.1 H (25.0-35.0) pg Neutrophils # 11.5 H (1.3-7.7) k/uL Lymphocytes # 0.4 L (1.0-4.8) k/uL Glucose 189 H (74-99) mg/dL POC Glucose (mg/dL) 135 H (75-99) mg/dL 02/09/18 02/09/18 Range/Units 12:00 16:21 WBC (3.8-10.6) k/uL MCV (80.0-100.0) fL MCH (25.0-35.0) pg Neutrophils # (1.3-7.7) k/uL Lymphocytes # (1.0-4.8) k/uL Glucose (74-99) mg/dL POC Glucose (mg/dL) 134 H 164 H (75-99) mg/dL Assessment and Plan Assessment: Acute asthma attack Possible acute tracheobronchitis Essential hypertension GERD Plan: This is a pleasant 62 years old female who presents because of acute asthma exacerbation. Continue with steroids, oxygen, breathing treatment and antibiotic. Continue same treatment. Continue symptomatic treatment. Resume home medication. Monitor lytes and vitals. Pulmonary consult is appreciated. GI and DVT prophylaxis. Further recommendation the clinical course of the patient DVT prophylaxis:Subcutaneous heparin GI prophylaxis:Pepcid PT/OT: Pending Prognosis is guarded
[2018-02-09 19:56] LABS: Glucose,Whole Blood 159 mg/dL (75-99)
[2018-02-09 21:40] VITALS: RESP 20
[2018-02-10] MEDS: HEPARIN SODIUM,PORCINE 5,000 UNIT/ML 1 ML VIAL SQ SCH ×2 (00:19→09:03)
[2018-02-10] MEDS: methylPREDNISolone SOD SUCCI 125 MG/2 ML VIAL IV SCH ×3 (00:19→11:20)
[2018-02-10] MEDS: IPRATROPIUM-ALBUTEROL 3 ML NEB INHALATION SCH ×3 (03:35→11:05)
[2018-02-10] MEDS: INSULIN ASPART 100 UNIT/ML 1 ML 10 ML VIAL SQ SCH ×2 (06:34→11:26)
[2018-02-10] MEDS: PANTOPRAZOLE 40 MG TABLET PO SCH (06:37)
[2018-02-10 06:46] LABS: Glucose,Whole Blood 131 mg/dL (75-99)
[2018-02-10] MEDS: BUDESONIDE 1 MG/2 ML NEBU INHALATION SCH (07:02)
[2018-02-10] MEDS: FORMOTEROL FUMARATE 20 MCG/2 ML NEBU INHALATION SCH (07:02)
[2018-02-10 08:48] VITALS: BP 126/73; TEMP 98.2
[2018-02-10] MEDS: FAMOTIDINE 20 MG/2 ML VIAL IV SCH (09:03)
[2018-02-10] MEDS: LISINOPRIL-HCTZ 20-12.5 MG 1 EACH TAB PO SCH (09:04)
--- NOTE | 2018-02-10 10:06 | P.DS ---
Providers Date of admission: 02/08/18 01:01 Attending physician: Mir Gates MD Consults: 02/08/18 01:01 Consult Physician Routine Consulting Provider: Edouard Wilkerson Reason/Comments: Asthma exacerbation Do you want consulting provider notified?: Yes, Notify in am Primary care physician: Rita Osuna [facility] Course: This dictation is both progress note and discharge summary She is admitted for asthma exacerbation. Patient is still unable to bring up anything still wheezing on exam. Saturating well on room air patient wanted to go home will ablate him in the hallway. Vital stable stays stable and oxygen saturation stays stable if cleared by Pulmonology patient will be discharged on weaning dose of steroids are do not believe patient will need antibiotics patient has asthmatic bronchitis. PHYSICAL EXAMINATION: GENERAL: The patient is alert and oriented x3, not in any acute distress. Well developed, well nourished. HEENT: Pupils are round and equally reacting to light. EOMI. No scleral icterus. No conjunctival pallor. Normocephalic, atraumatic. No pharyngeal erythema. No thyromegaly. CARDIOVASCULAR: S1 and S2 present. No murmurs, rubs, or gallops. PULMONARY: Expiratory wheezing on exam ABDOMEN: Soft, nontender, nondistended, normoactive bowel sounds. No palpable organomegaly. MUSCULOSKELETAL: No joint swelling or deformity. EXTREMITIES: No cyanosis, clubbing, or pedal edema. NEUROLOGICAL: Gross neurological examination did not reveal any focal deficits. SKIN: No rashes. -Acute exacerbation of asthma patient appears to have chronic intermittent asthma -Essential hypertension -Gastroesophageal reflux disease Patient Condition at Discharge: Serious Plan - Discharge Summary Discharge Rx Participant: No New Discharge Prescriptions: New predniSONE 10 mg PO DAILY #30 tab No Action Lisinopril-Hctz 20-12.5 mg [Zestoretic 20-12.5] 1 tab PO DAILY Fluticasone Propionate [Flovent Diskus] 1 puff INHALATION RT-DAILY PRN PRN Reason: Shortness Of Breath Beclomethasone Dipropionate [Qvar 80 mcg] 1 puff INHALATION RT-BID Albuterol Sulfate [Proair Hfa] 1 - 2 puff INHALATION Q6HR PRN PRN Reason: Shortness Of Breath Pantoprazole [Protonix] 40 mg PO DAILY Discharge Medication List Albuterol Sulfate [Proair Hfa] 1 - 2 puff INHALATION Q6HR PRN 02/07/18 [History] Beclomethasone Dipropionate [Qvar 80 mcg] 1 puff INHALATION RT-BID 02/07/18 [ History] Fluticasone Propionate [Flovent Diskus] 1 puff INHALATION RT-DAILY PRN 02/07/18 [History] Lisinopril-Hctz 20-12.5 mg [Zestoretic 20-12.5] 1 tab PO DAILY 02/07/18 [History ] Pantoprazole [Protonix] 40 mg PO DAILY 02/07/18 [History] predniSONE 10 mg PO DAILY #30 tab 02/10/18 [Rx] Follow up Appointment(s)/Referral(s): Rita Osuna DO [Primary Care Provider] - 3 Days Edouard Wilkerson DO [Doctor of Osteopathic Medicine] - 1 Week Patient Instructions/Handouts: Asthma (DC) Discharge Disposition: HOME SELF-CARE
[2018-02-10 11:08] VITALS: PULSE 75
[2018-02-10] MEDS: LEVOFLOXACIN 500 MG TAB PO SCH (11:19)
[2018-02-10 11:29] LABS: Glucose,Whole Blood 145 mg/dL (75-99)
--- NOTE | 2018-02-10 11:40 | P.PN ---
Subjective Progress Note Date: 02/10/18 Principal diagnosis: Asthma exacerbation Progress note dated 02/10/2018 62-year-old male with a history of asthma exacerbation complicated by purulent tracheobronchitis. The patient is a lifelong nonsmoker and has a history of hypertension and gastroesophageal reflux disease. The patient may be discharged home today. We'll awaiting the input from the hospital service. The patient's breathing is much improved. He's responded very nicely to breathing treatments oral antibiotics and corticosteroids. He would like to see me in the office after his discharge so that we could better evaluate and treat his chronic bronchial asthma. We gave him a card. His complaints include chest tightness wheezing coughing and shortness of breath all of which have significantly improved over the last couple of days. There is no chest pain or pressure. No fever chills nausea vomiting or diarrhea. Objective - Vital Signs Vital signs: Vital Signs Temp 98.2 F 02/10/18 08:15 Pulse 75 02/10/18 11:18 Resp 20 02/10/18 08:15 BP 126/73 02/10/18 08:15 Pulse Ox 94 L 02/10/18 08:15 Intake & Output 02/09/18 02/10/18 02/10/18 18:59 06:59 18:59 Intake Total 780 240 Balance 780 240 Weight 75.466 kg Intake: Oral 780 240 Other: Voiding Method Urinal # Voids 1 2 2 - Exam No acute distress, oriented 3. No moises respiratory distress. No use of accessory muscles. No audible wheezing. HEENT examination is grossly unremarkable. Mucous membranes are moist. No oral lesions. Neck supple. Full range of motion. No adenopathy thyromegaly or neck vein distention. Cardiovascular examination reveals regular rhythm rate. S1-S2 normal. No S3 or S4. No discernible murmur noted. Lungs reveal high-pitched bilateral expiratory wheezes. Breath sounds are much improved. There is prolongation on forced maneuver. No crackles or rhonchi. Breath sounds are diminished throughout. Abdomen soft bowel sounds are heard. No masses or tenderness. Extremities are intact. No cyanosis clubbing or edema. Skin is without rash or lesion. Neurologic examination is brief but nonfocal. - Labs CBC & Chem 7: 02/09/18 08:50 02/09/18 08:50 Labs: Abnormal Lab Results - Last 24 Hours (Table) 02/09/18 02/09/18 02/09/18 Range/Units 12:00 16:21 19:55 POC Glucose (mg/dL) 134 H 164 H 159 H (75-99) mg/dL 02/10/18 02/10/18 Range/Units 06:25 11:23 POC Glucose (mg/dL) 131 H 145 H (75-99) mg/dL Microbiology - Last 24 Hours (Table) 02/10/18 08:30 Gram Stain - Final Sputum Sputum Culture - Final Assessment and Plan Assessment: Assessment Asthma exacerbation likely complicated by purulent tracheobronchitis Lifelong nonsmoker. History of hypertension History of gastroesophageal reflux disease Plan: Plan dated 02/08/2018 The patient's medications are reviewed. He'll need a short acting beta agonist , I short acting muscarinic antagonist, a long-acting beta agonist and inhaled corticosteroid. In addition, the patient will need systemic corticosteroids and oral antibiotics. He probably will need another day or 2 in the hospital. He apparently was on Singulair in the past but stopped it because it caused abdominal pains. He stopped and then resumed it after 2 weeks and it again caused abdominal pains and he has never gone back on it. 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 He get shots every 2 weeks. The patient will need follow-up in our office post discharge. No additional recommendations are made. Prognosis is guarded. Plan dated 02/10/2018 The patient feels much improved. He will like to be discharged home. It will be up to his primary physician.The hospital doctor. The patient is currently on breathing treatments as well as steroids and antibiotics. He should be discharged home on a prednisone burst and taper beginning with 40 mg a day for 4 days, 30 mg a day for 4 days, 20 mg a day for 4 days and finally 10 times a day for 4 days then stop. In addition, he'll be discharged home on a short course of Levaquin 500 mg a day for 5 days. The patient will be sent home on all his usual medications. He could not tolerate Singulair as it causes abdominal pain on 2 separate occasions. We'll wait and see him in the office. Microbiology is negative. No new laboratory data to report. Time with Patient: Less than 30
== END 2018-02-10 11:45 | disposition home or self-care (01) | DRG 203 ==
LOC: EC 23:25 → 3SCARD 02-08 01:01
PROVIDERS: ADMIT Internal Medicine; ATTEND Internal Medicine
DX: J45.21 Mild intermittent asthma with (acute) exacerbation (principal); I10 Essential (primary) hypertension; J20.9 Acute bronchitis, unspecified; K21.9 Gastro-esophageal reflux disease without esophagitis; R09.02 Hypoxemia; Z79.51 Long term (current) use of inhaled steroids; Z79.899 Other long term (current) drug therapy; Z82.49 Family history of ischemic heart disease and other diseases of the circulatory system; Z80.1 Family history of malignant neoplasm of trachea, bronchus and lung
CPT/HCPCS: 36415; 71045; 80048; 80053; 82550; 82553; 83735; 83880; 84484; 85025; 85379; 85610; 85730; 87070; 87205; 93005; 94640; 94660; 94760; 96361; 96365; 96375; 99291

== ENCOUNTER → 2018-03-01 | Outpatient (CLI) | payer BC ==
--- NOTE | 2018-03-04 07:10 | US ---
EXAMINATION TYPE: US kidneys/renal and bladder DATE OF EXAM: 03/01/2018 COMPARISON: NONE CLINICAL HISTORY: R31.9 HEMATURIA. Microscopic hematuria per patient EXAM MEASUREMENTS: Right Kidney: 12.2 x 7.0 x 5.9 cm Left Kidney: 12.0 x 7.0 x 6.1 cm Post Void Residual Volume: 3.0 mL Right Kidney: No hydronephrosis or masses seen Left Kidney: No hydronephrosis or masses seen; vessel wall calcification seen as hyperechoic parallel lines inferior pole Bladder: wnl Bilateral Jets seen: yes Normal Post Void Residual: yes Cortical medullary differentiation is maintained. There is no ascites. IMPRESSION: No significant abnormality is evident.
== END | disposition home or self-care (01) ==
LOC: RADUSWWP 15:42
PROVIDERS: ATTEND Urology
DX: R31.9 Hematuria, unspecified (principal)
CPT/HCPCS: 76770

== ENCOUNTER 2024-07-25 12:05 | Day surgery (SDC) | payer BC ==
[~2024-07-25 12:05] MED LIST: LIDOCAINE 1% (10MG/ML) FOR IV START INTRADERMA PRN
[2024-07-25 14:06] VITALS: TEMP 98.5
[2024-07-25] MEDS: LACTATED RINGERS 1,000 ML IV SCH (14:19)
[2024-07-25] MEDS: IV FLUID CONTINUATION 1,000 ML IV ONE (14:20)
[2024-07-25] MEDS ORDERED: LIDOCAINE 2% (PF) 20 MG/ML 5 ML VIAL ONE (14:54)
[2024-07-25] MEDS ORDERED: PROPOFOL 10 MG/ML 20 ML VIAL IV ONE (14:54)
--- NOTE | 2024-07-25 15:06 | P.PCN ---
Date of Procedure: 07/25/24 Procedure(s) Performed: BRIEF HISTORY: Patient is a 69-year-old, pleasant, white male scheduled for an upper endoscopy as a part evaluation of anemia and history of GERD.. He follows up with Dr. Templeton for polycythemia. Recently was noted to have drop in hemoglobin from 13 to 11 g/dL. His last colonoscopy was 2 years ago that was unremarkable. Because of concern of anemia and blood loss he scheduled for an upper endoscopy to evaluate further. PROCEDURE PERFORMED: Esophagogastroduodenoscopy with biopsy. PREOPERATIVE DIAGNOSIS: GERD/anemia. IV sedation per anesthesia. PROCEDURE: After informed consent was obtained, the patient was brought into the endoscopy unit. IV sedation was administered by Anesthesia under continuous monitoring. Initially the Olympus GIF-140 video endoscope was inserted into the mouth. Esophagus intubated without any difficulty. It was gradually advanced into the stomach and duodenum and carefully examined. The bulb and the second part of the duodenum appeared normal. Biopsies were done from the duodenum rule out celiac disease. The scope at this time was withdrawn to the stomach, adequately insufflated with air, and upon careful examination, mucosa of the antrum and mild patchy areas of erythema consistent with gastritis and biopsies were done from this area. Mucosa of the, body, cardia and the fundus appeared normal. The scope was then withdrawn into the esophagus. Small hiatal hernia noted. The GE junction was located at 39 cm from the incisors. The esophagus appeared normal. There were no erosions or ulcerations seen and the patient tolerated the procedure well. IMPRESSION: 1. Small hiatal hernia. 2. Mild antral gastritis 3. No evidence of esophagitis or peptic ulcer disease. RECOMMENDATIONS: The findings of this examination were discussed with the patient as well as his family. He was advised to follow-up with the biopsy results.. Continue with Protonix 40 mg daily and follow antireflux measures.
[2024-07-25 15:28] VITALS: BP 133/71; PULSE 69; RESP 18
== END 2024-07-25 16:02 | disposition home or self-care (01) ==
LOC: ORWHC2ENDO 12:05
PROVIDERS: ATTEND Internal Medicine Gastroenterology
DX: K29.50 Unspecified chronic gastritis without bleeding (principal); D64.9 Anemia, unspecified; K44.9 Diaphragmatic hernia without obstruction or gangrene; K21.9 Gastro-esophageal reflux disease without esophagitis
CPT/HCPCS: 43239; J2704; J2003; 88305